=== PATIENT | female | born 2000 | race Hispanic/Latino ===

== ENCOUNTER 2024-06-26 22:58 | Day surgery (SDC) | payer BC, OTHER ==
[2024-06-26 23:57] LABS: Fetal Membranes Rupture No Membranes Rupture (No Rupture)
[2024-06-27 00:10] VITALS: BMI 30.2
[2024-06-27] MEDS ORDERED: hydrALAZINE 20 MG/ML VIAL SLOW IVP PRN (00:23)
== END 2024-06-27 01:26 | disposition home or self-care (01) ==
LOC: CSHLD/OP 22:58
PROVIDERS: ATTEND Family Medicine
DX: Z03.71 Encounter for suspected problem with amniotic cavity and membrane ruled out (principal); O99.613 Diseases of the digestive system complicating pregnancy, third trimester; K40.90 Unilateral inguinal hernia, without obstruction or gangrene, not specified as recurrent; Z3A.36 36 weeks gestation of pregnancy
CPT/HCPCS: 84112; 87480; 87510; 87660; 99285

== ENCOUNTER 2024-07-18 18:00 | Inpatient (IN) | payer BC, OTHER ==
[2024-07-18] MEDS ORDERED: hydrALAZINE 20 MG/ML VIAL SLOW IVP PRN ×2 (18:06→18:12)
[2024-07-18] MEDS ORDERED: Methylergonovine 0.2 MG/ML VIAL IM PRN (18:12)
[2024-07-18] MEDS ORDERED: HYDROcodone/Acetaminophen 5/325 mg Tablet PO PRN (18:12)
[2024-07-18] MEDS ORDERED: Carboprost 250 MCG/ML AMP IM PRN (18:12)
[2024-07-18] MEDS ORDERED: Tranexamic Acid 1,000 MG/10 ML VIAL IVP PRN (18:12)
[2024-07-18] MEDS ORDERED: Lidocaine 1% (PF) 30 ML VIAL SC PRN (18:12)
[2024-07-18] MEDS ORDERED: Ondansetron PF 4 MG/2 ML Vial IVP PRN (18:12)
[2024-07-18] MEDS ORDERED: Acetaminophen 500 MG TAB PO PRN (18:12)
[2024-07-18] MEDS ORDERED: Misoprostol 200 MCG TAB PR PRN (18:12)
[2024-07-18] MEDS ORDERED: Promethazine HCl 25 MG/ML VIAL IM PRN (18:12)
[2024-07-18] MEDS ORDERED: fentaNYL 50 mcg/mL 1 mL Vial SLOW IVP PRN (18:12)
[2024-07-18] MEDS ORDERED: Diphenoxylate HCl/Atropine Tablet PO PRN (18:12)
[2024-07-18] MEDS ORDERED: Oxytocin 30 units/NS 500 ML 500 ML IV SCH (18:15)
[2024-07-18 18:30] VITALS: BMI 30.9
[2024-07-18 19:23] LABS: Hematocrit 35.1 % (34.9-44.5); Hemoglobin 11.1 g/dL (12.0-15.5); Mean Corpuscular HGB CONC 31.6 g/dL (32.0-36.0); Mean Corpuscular Hemoglobin 24.9 pg (27.0-33.0); Mean Corpuscular Volume 78.7 fL (81.6-98.3); Mean Platelet Volume 10.2 fL (7.4-10.4); Platelet Count 339 10x3/uL (150-450); RBC Distribution Width 13.2 % (11.5-14.5); Red Blood Cell (RBC) Count 4.46 10x6/uL (3.90-5.03); White Blood Cell (WBC) Count 8.4 10x3/uL (3.5-10.5)
[2024-07-18 22:15] LABS: HBsAg Index 0.25 S/CO (0-0.99); Hep B Surf Ag - L&D Non-Reactive S/CO (NonReactive)
[2024-07-18 22:17] LABS: Syphilis Antibody Nonreactive (Nonreactive); Syphilis Antibody Index 0.04 S/CO (<1.00 Non-Reactive)
[2024-07-18] MEDS ORDERED: Penicillin G Potassium 5 MILL.UNITS in Sodium Chloride 0.9% 100 ML IVPB SCH (22:30)
[2024-07-19] MEDS: Penicillin G Potassium 5 MILL.UNITS in Sodium Chloride 0.9% 100 ML IVPB SCH (00:54)
[2024-07-19] MEDS: Lactated Ringer's 1,000 ML IV SCH (00:54)
[2024-07-19] MEDS: Misoprostol 100 MCG TAB VAG SCH (01:33)
[2024-07-19] MEDS: Penicillin G 2.5 MILL.units 2.5 MILL.UNITS in Premix 1 BAG IVPB SCH (04:53)
[2024-07-19] MEDS: Oxytocin 30 units/NS 500 ML 500 ML IV SCH ×2 (05:30→10:55)
[2024-07-19] MEDS: fentaNYL/Ropivacaine Epidural 100 ML ONE (06:36)
[2024-07-19] MEDS ORDERED: Promethazine HCl 25 MG/ML VIAL IM PRN ×2 (06:43→13:34)
[2024-07-19] MEDS ORDERED: Moisturizing Cream (Eucerin) 113 GM JAR TOP PRN (06:43)
[2024-07-19] MEDS ORDERED: Lactated Ringer's 500 ML IV PRN (06:43)
[2024-07-19] MEDS ORDERED: Acetaminophen 325 MG TAB PO PRN (06:43)
[2024-07-19] MEDS ORDERED: diphenhydrAMINE 50 MG/ML VIAL IVP PRN (06:43)
[2024-07-19] MEDS ORDERED: Ondansetron PF 4 MG/2 ML Vial IVP PRN ×2 (06:43→13:34)
[2024-07-19] MEDS ORDERED: Naloxone HCl 0.4 mg/ml Vial IVP PRN ×2 (06:43)
[2024-07-19] MEDS ORDERED: Active EPIDURAL FS SCH (06:45)
[2024-07-19] MEDS ORDERED: fentaNYL 2 mcg/Ropivacaine 0.2% Epidural 100 ML CADD EPIDURAL SCH (06:45)
[2024-07-19] MEDS: ePHEDrine Sulfate 50 MG/10 ML VIAL SLOW IVP PRN (07:58)
[2024-07-19] MEDS: Ibuprofen 800 MG TAB PO PRN (12:46)
[2024-07-19] MEDS ORDERED: Bisacodyl 10 MG SUPP PR PRN (13:34)
[2024-07-19] MEDS ORDERED: diphenhydrAMINE 25 MG CAP PO PRN (13:34)
[2024-07-19] MEDS ORDERED: hydrALAZINE 20 MG/ML VIAL SLOW IVP PRN (13:34)
[2024-07-19] MEDS ORDERED: HYDROcodone/Acetaminophen 5/325 mg Tablet PO PRN (13:34)
[2024-07-19] MEDS ORDERED: Benzocaine-Menthol 82.5 ML CAN TOP PRN (13:34)
[2024-07-19] MEDS ORDERED: Lanolin Ointment 7 GM TUBE TOP PRN (13:34)
[2024-07-19] MEDS ORDERED: Milk Of Magnesia 30 ML UDCUP PO PRN (13:34)
[2024-07-19] MEDS: Boostrix 0.5 ML (Tdap) VIAL (>/=7 yrs of age) IM ONE (14:13)
[2024-07-19] MEDS: Dexmedetomidine 200 MCG/2 ML VIAL ONE (14:13)
[2024-07-19] MEDS: Ibuprofen 800 MG TAB PO SCH (14:14)
[2024-07-19] MEDS: Ferrous Sulfate 325 MG TAB PO SCH (17:41)
[2024-07-19] MEDS: Docusate 100 MG CAP PO SCH (20:20)
[2024-07-20] MEDS: Ibuprofen 800 MG TAB PO SCH (04:09)
[2024-07-20] MEDS ORDERED: fentaNYL 50 mcg/mL 1 mL Vial SLOW IVP PRN (06:44)
[2024-07-20] MEDS ORDERED: Diphenoxylate HCl/Atropine Tablet PO PRN (06:44)
[2024-07-20] MEDS: Prenatal Vitamin 1 TAB PO SCH (07:41)
[2024-07-20 07:52] VITALS: BP 93/56; TEMP 97.9
[2024-07-20] MEDS ORDERED: ePHEDrine Sulfate 50 MG/10 ML VIAL ONE (12:00)
[2024-07-20] MEDS ORDERED: Bupivacaine/Epinephrine 0.25% 30 ML VIAL ONE (12:00)
== END 2024-07-20 12:45 | disposition home or self-care (01) | DRG 807 ==
LOC: CSHLD 18:03 → CSHPED 07-19 13:40
PROVIDERS: ADMIT Family Medicine; ATTEND Family Medicine
PROC: 10E0XZZ Delivery of Products of Conception, External Approach (ICD-10-PCS; principal; 2024-07-18)
PROC: 10907ZC Drainage of Amniotic Fluid, Therapeutic from Products of Conception, Via Natural or Artificial Opening (ICD-10-PCS; 2024-07-18)
PROC: 3E033VJ Introduction of Other Hormone into Peripheral Vein, Percutaneous Approach (ICD-10-PCS; 2024-07-18)
PROC: 0UQMXZZ Repair Vulva, External Approach (ICD-10-PCS; 2024-07-18)
DX: O99.824 Streptococcus B carrier state complicating childbirth (principal); Z37.0 Single live birth; O71.82 Other specified trauma to perineum and vulva; Z3A.39 39 weeks gestation of pregnancy; O70.1 Second degree perineal laceration during delivery
CPT/HCPCS: 36415; 51702; 85027; 86780; 86850; 86900; 86901; 87340; J2540; J2590; J7120

== ENCOUNTER 2025-03-20 09:10 | Outpatient (CLI) | payer OTHER | END 2025-03-20 09:11 | disposition home or self-care (01) | LOC: CSHULT 09:10 | DX: R10.2 Pelvic and perineal pain (principal); Z97.5 Presence of (intrauterine) contraceptive device | CPT/HCPCS: 76856 ==